=== PATIENT | male | born 2000 | race Caucasian/White ===

== ENCOUNTER 2023-10-29 15:47 | Emergency (ER) | payer OTHER, SELFPAY ==
--- NOTE | ~2023-10-29 | CT_ITS ---
EXAMINATION: CT abdomen pelvis w con DATE: 10/29/2023 19:14 INDICATION: Right lower quadrant abdominal pain TECHNIQUE: Computed tomography (CT) of the abdomen and pelvis was performed with 100 mL Omnipaque-350 intravenous contrast. Automated exposure control and iterative reconstruction technique were employe d. The dose-length product was 209.34 mGy-cm. COMPARISON: 07/08/2017 FINDINGS: Lung bases are clear. Heart size is normal. No pericardial or pleural effusion. Liver, gallbladder, s pleen, pancreas, bilateral adrenal glands and left kidney are normal. There are regions of decreased cortical enhancement at both kidneys which raises some concern for pyelonephritis although there is n o evident perinephric stranding to more specifically suggest this and this could be artifact of the p hase of contrast. Bladder is normal. No abnormal bowel wall thickening or obstruction. The appendix i s not visualized. No pericecal inflammatory change to suggest acute appendicitis. No free intraperito jose miguel gas or fluid. No pathologically enlarged abdominal or pelvic lymphadenopathy. Mild lumbar levoro toscoliosis with chronic Schmorl's node along the superior endplate of L4. IMPRESSION: 1. Region of decreased cortical enhancement at both kidneys which raises concern for pyelonephritis. Correlate with urinalysis. Reviewed, dictated and finalized at location A. IMPRESSION: 1. Region of decreased cortical enhancement at both kidneys which raises concer n for pyelonephritis. Correlate with urinalysis.
[2023-10-29 16:14] VITALS: BP 122/70; PULSE 56; RESP 18; TEMP 36.6; O2SAT 100
[2023-10-29 18:24] VITALS: BP 140/91; PULSE 50; RESP 18; O2SAT 100
[2023-10-29 18:28] LABS: Basophils Percent Auto 0.3 % (0.2-1.2); Eosinophils Absolute Auto 0.3 K/mm3 (0-0.3); Eosinophils Percent Auto 2.6 % (0-4.4); Hematocrit 46.2 % (42.0-52.0); Hemoglobin 15.5 g/dL (14.0-18.0); Immature Granulocyte Absolute 0.02 K/mm3 (0.00-0.031); Immature Granulocyte Percent A 0.2 % (0-0.5); Lymphocytes Absolute Auto 1.85 K/mm3 (0.9-3.2); Lymphocytes Percent Auto 18.4 % (18.3-44.2); Mean Corpuscular HGB Conc 33.5 g/dl (32-36); Mean Corpuscular Hemoglobin 31.6 pg (26-34); Mean Corpuscular Volume 94.1 fl (80-100); Monocytes Absolute Auto 0.8 K/mm3 (0.1-0.6); Monocytes Percent Auto 7.7 % (2.6-8.5); Neutrophils Absolute Auto 7.1 K/mm3 (1.3-6.7); Neutrophils Percent Auto 70.8 % (45.5-73.1); Platelet Count Result 268 k/mm3 (150-375); Red Blood Count 4.91 M/mm3 (4.6-6.20); Red Cell Distribution Width 12.2 % (11.5-14.5); White Blood Count 10.1 K/mm3 (4.5-10.0)
[2023-10-29 18:38] LABS: Alanine Aminotransferase 14 U/L (6-50); Albumin Level 5.2 g/dL (3.5-5.1); Alkaline Phosphatase 57 U/L (38-126); Anion Gap 9 mmol/L (4-12); Aspartate Amino Transferase 23 U/L (17-59); Bilirubin,Total 0.7 mg/dL (0.2-1.3); Blood Urea Nitrogen 12 mg/dL (9-20); Calcium 9.8 mg/dL (8.4-10.2); Carbon Dioxide 26 mmol/L (22-30); Chloride 105 mmol/L (98-107); Estimated CRCL calculation 79 ml/min; Estimated Glomerular Filt Rate > 60; Glucose 91 mg/dL (65-110); Lipase 45 U/L (23-300); Potassium 4.2 mmol/L (3.4-5.0); Sodium 140 mmol/L (137-145)
[2023-10-29 19:04] LABS: Appearance Urine Clear (Clear); Bacteria Urine None Seen /hpf; Bilirubin Urine Negative (Negative); Blood Urine Negative (Negative); Color Urine Yellow (Yellow); Glucose Urine UA Negative (Negative); Ketones Urine Negative (Negative); Leukocyte Esterase Ur Negative LEU/UL (Negative); Nitrate Urine Negative (Negative); Non Pathogenic Casts 0-2; Protein Urine 1+ mg/dL (Negative); RBC Urine 0-2 /hpf (0-2); Squamous Epithelial Cell Urine None Seen /hpf (Few); Urobilinogen Urine 0.2 mg/dL (<2.0); WBC Urine 0-5 /hpf (0-3)
[2023-10-29 19:15] LABS: Add Urine Microscopic? YES
[2023-10-29] MEDS: SODIUM CHLORIDE 0.9% IV 2,000 ML 999 ML IV CONT (19:33)
[2023-10-29] MEDS: KETOROLAC 15 MG/ML VIAL (*BKC) IV PUSH (19:34)
--- NOTE | 2023-10-29 20:29 | ED.GENADULT ---
HPI - General Adult General Chief complaint: Abdominal Pain Stated complaint: RLQ pain Time Seen by Provider: 10/29/23 18:06 History of Present Illness HPI narrative: This is a 22-year-old male presenting with right lower quadrant abdominal pain. Pain started yesterday. Feels like a squeezing sensation. It is nonradiating, 5 out 10 intensity and comes and goes. It is worse with movement. Not associated with fevers chills nausea vomiting or diarrhea. Last bowel movement was earlier today and normal. Patient denies testicular pain urinary symptoms. He is not taking anything for pain control. Related Data Allergies Allergy/AdvReac Type Severity Reaction Status Date / Time NKDA Allergy Mild Uncoded 05/20/19 15:34 [facility] Social History Social History (System 05/20/19 @ 15:34 by Hannah Rivera) Second hand tobacco smoke exposure: Yes Alcohol intake: never Exam Narrative: APPEARANCE: No apparent distress. Head: atraumatic. EYES: EOMI, NOSE: Atraumatic NECK: Trachea midline RESPIRATORY: No increased rate of breathing, ctab. CARDIOVASCULAR: RRR, ABDOMINAL: Non-distended , soft no guarding rebound, unable to elicit a grimace/pain on deep palpation, no CVA tenderness MUSCULOSKELETAl: No obvious deformities NEURO: Alert. Moving 4/4 extremities SKIN:: Warm, dry. Normal color PSYCHIATRIC: Normal affect Course Vital Signs Vital signs: Vital Signs Temperature 97.9 F 10/29/23 16:14 Pulse Rate 56 L 10/29/23 16:14 Respiratory Rate 18 10/29/23 16:14 Blood Pressure 122/70 10/29/23 16:14 Pulse Oximetry 100 10/29/23 16:14 Temperature 97.9 F 10/29/23 16:14 Pulse Rate 50 L 10/29/23 18:24 Respiratory Rate 18 10/29/23 18:24 Blood Pressure 140/91 H 10/29/23 18:24 Pulse Oximetry 100 10/29/23 18:24 Medical Decision Making [facility] Narrative Medical decision making narrative: -Course: this is a 22-year-old male presenting with right lower quadrant abdominal pain. Laboratories, CT and urine were all negative for acute findings. Patient's pain improved with Toradol. Suspect muscle strain. Patient will be discharged a trial of NSAIDs with return precautions given For fevers severe abdominal pain, intractable nausea vomiting, inability to pass gas. -DDX includes but is not limited to: appendicitis, gallbladder disease, colitis, constipation, pulled muscle, kidney infection -Social determinants of health: occasional marijuana use, -Independent interpretation of studies: White count 10.1. Metabolic panel unremarkable. Urine not indicative infection CT: Abdomen/pelvis: 1. Region of decreased cortical enhancement at both kidneys which raises concern for pyelonephritis. Correlate with urinalysis. Urinalysis not indicative infection. Patient has no CVA tenderness. No concern for kidney infection at this time. -Interventions: 2 L normal saline, 15 mg Toradol -Shared decision making / Disposition: discharge Vital Signs Vital Signs: Vital Signs Temperature 97.9 F 10/29/23 16:14 Pulse Rate 56 L 10/29/23 16:14 Respiratory Rate 18 10/29/23 16:14 Blood Pressure 122/70 10/29/23 16:14 Pulse Oximetry 100 10/29/23 16:14 Temperature 97.9 F 10/29/23 16:14 Pulse Rate 50 L 10/29/23 18:24 Respiratory Rate 18 10/29/23 18:24 Blood Pressure 140/91 H 10/29/23 18:24 Pulse Oximetry 100 10/29/23 18:24 Lab Data 10/29/23 18:21 10/29/23 18:21 Labs: Lab Results 10/29/23 10/29/23 Range/Units 18:18 18:21 WBC 10.1 H (4.5-10.0) K/mm3 RBC 4.91 (4.6-6.20) M/mm3 Hgb 15.5 (14.0-18.0) g/dL Hct 46.2 (42.0-52.0) % MCV 94.1 (80-100) fl MCH 31.6 (26-34) pg MCHC 33.5 (32-36) g/dl RDW 12.2 (11.5-14.5) % Plt Count 268 (150-375) k/mm3 MPV 10.0 (7.4-10.4) fl Immature Gran % (Auto) 0.2 (0-0.5) % Neut % (Auto) 70.8 (45.5-73.1) % Lymph % (Auto) 18.4 (18.3-44.2) % [place] % (Auto) 7.7
[2023-10-29 21:20] VITALS: BP 128/84; PULSE 56; RESP 18; O2SAT 100
== END 2023-10-29 21:20 | disposition home or self-care (01) ==
PROVIDERS: Emergency Provider Emergency Medicine
DX: R10.31 Right lower quadrant pain (principal)
CPT/HCPCS: 36415; 74177; 80053; 81001; 83690; 85025; 96361; 96374; 99284; J1885; J7030; Q9967